=== PATIENT | female | born 1950 | race American Indian/Alaskan Native ===

== ENCOUNTER 2016-05-29 11:06 | Outpatient (CLI) | payer MEDICARE ==
--- NOTE | 2016-05-30 10:20 | Mammography Report ---
BONE DEXA:05/29/16 11:06:00 CLINICAL: Postmenopausal. No comparison. TECHNIQUE: Two site bone DEXA performed on an Hologic scanner. FINDINGS: The average BMD of the lumbar spine L2-L4 is 1.077g/cm squared with a T-score of -1.0 and a Z-score of +1.1. The L1 vertebral body was excluded as an outlier. As The average BMD of the left hip is 1.124g/cm squared with a T-score of +0.6 and a Z-score of +1.6. IMPRESSION: WHO classification: Normal with average fracture risk based on spine and left hip measurements. RECOMMENDATION: Clinical correlation and routine screening. DEFINITIONS: BMD = Bone Mineral Density T-score = BMD related to mean peak bone mass of young adult (mean expressed in Standard Deviation) Z-score = Age matched BMD expressed in SD World Health Organization (WHO) Diagnostic Criteria Normal T-score > -1 SD Osteopenia T-score between -1 and -2.4 SD Osteoporosis T-score -2.5 SD or below NOTE: BMD is not the only risk factor for fracture. One should also consider factors such as the patient's age, risk of falling, previous osteoporotic fracture, family history of osteoporotic fractures, current smoker, and low body weight. Z-scores are not calculated if >80 years of age.
== END 2016-05-29 11:07 | disposition home or self-care (01) ==
LOC: SPVWC 11:06
PROVIDERS: ATTEND Internal Medicine Hematology & Oncology
DX: M81.8 Other osteoporosis without current pathological fracture (principal); Z78.0 Asymptomatic menopausal state
CPT/HCPCS: 77080

== ENCOUNTER 2018-12-01 15:09 | Outpatient (CLI) | payer MEDICARE ==
--- NOTE | 2018-12-04 12:38 | Mammography Report ---
Bone densitometry. History: BREAST CA/ ON AROMATASE THERAPY Procedure: Patient scanned with an Hologic DEXA System. Examination was performed of the lumbar spi ne and left hip. Comparison: 05/29/2016. Findings: The BMD of the lumbar spine is 1.009 gm/cm2 with a T-score of -1.3 and a Z score of 0.9 Percent jackson ge from previous exam is -1.7% and the percent change from baseline is -1.7%. The bone mineral density (BMD) of the left femoral neck is 0.917 gm/cm2 with a T-score of -0.2 and a Z score of +1.1. The BMD of the total left hip is 1.084 gm/cm2 with a T-score of +0.3 and a Z score o f +1.4. Percent change from the previous exam is -3.6% and change from baseline is -3.3%. Impression: WHO classification: Osteopenia with increased fracture risk based on spine measurements. WHO classification: Normal with average fracture risk based on left hip measurements. A modest declin e in both spine and left hip BMD compared to the last exam. Signer Name: Thomas Lugo MD Signed: 12/04/2018 12:34 PM Workstation Name: [id number]
== END 2018-12-01 15:10 | disposition home or self-care (01) ==
LOC: MAMMO 15:09
PROVIDERS: ATTEND Internal Medicine Hematology & Oncology
DX: M85.88 Other specified disorders of bone density and structure, other site (principal); C50.411 Malignant neoplasm of upper-outer quadrant of right female breast; D64.9 Anemia, unspecified; Z79.811 Long term (current) use of aromatase inhibitors
CPT/HCPCS: 77080